=== PATIENT | male | born 1940 | race Caucasian/White ===

== ENCOUNTER 2021-01-28 09:06 | Outpatient (CLI) | payer MEDICARE, OTHER ==
[2021-01-28] MEDS ORDERED: SAW1CAPS6 PO (10:11)
[2021-01-28] MEDS ORDERED: MAGN100T PO (10:11)
[2021-01-28] MEDS ORDERED: VALS320T2 PO (10:11)
[2021-01-28] MEDS ORDERED: UBID100C24 PO (10:11)
[2021-01-28] MEDS ORDERED: OMEG1CAP34 PO (10:11)
[2021-01-28] MEDS ORDERED: BENZ-17 PO (10:11)
[2021-01-28] MEDS ORDERED: ATOR40TA78 PO (10:11)
[2021-01-28] MEDS ORDERED: FINA5TAB4 PO (10:11)
[2021-01-28] MEDS ORDERED: CHOL10003 PO (10:11)
[2021-01-28] MEDS ORDERED: ALFU10TA PO (10:11)
[2021-01-28 10:21] LABS: CHLORIDE 103 mmol/L (98-107)
[2021-01-28 10:28] LABS: ALANINE AMINOTRANSFERASE 29 U/L (12-78); ALBUMIN 3.7 g/dL (3.4-5.0); ALKALINE PHOSPHATASE 71 U/L (45-117); ANION GAP 6 mmol/L (5-15); BILIRUBIN,TOTAL 0.6 mg/dL (0.2-1.0); CALCIUM 9.4 mg/dL (8.5-10.1); CREATININE 0.77 mg/dL (0.7-1.3); TOTAL PROTEIN 6.6 g/dL (6.4-8.2)
== END 2021-01-28 23:59 | disposition home or self-care (01) ==
LOC: STAR 09:06 → EDBD 09:30 → STAR 23:59
PROVIDERS: ATTEND Orthopaedic Surgery
DX: Z01.818 Encounter for other preprocedural examination (principal); M25.511 Pain in right shoulder
CPT/HCPCS: 36415; 80053; 87081; 93005

== ENCOUNTER 2021-02-03 10:17 | Day surgery (SDC) | payer MEDICARE, OTHER ==
[~2021-02-03] VITALS: Ht 165.1 cm; Wt 97.7 kg
[~2021-02-03 10:17] MED LIST: ALFU10TA PO; ATOR40TA78 PO; BENZ-17 PO; CHOL10003 PO; FINA5TAB4 PO; MAGN100T PO; OMEG1CAP34 PO; SAW1CAPS6 PO; UBID100C24 PO; VALS320T2 PO
[2021-02-03 11:24] VITALS: BP 136/85
[2021-02-03] MEDS ORDERED: LACTATED RINGERS 1,000 ML IV SCH (11:30)
[2021-02-03] MEDS ORDERED: CHLORHEXIDINE 15 ML UDC PO ONE (11:30)
[2021-02-03] MEDS ORDERED: BUPIVACAINE LIPOSOME/PF 10ML INFIL ONE (11:55)
[2021-02-03] MEDS ORDERED: OXYcodone 5 MG/5 ML ORAL.SOL UDC PO PRN (12:00)
[2021-02-03] MEDS ORDERED: HYDROcodone/APAP 7.5-325MG/15ML UDC PO PRN (12:00)
[2021-02-03] MEDS ORDERED: FENTANYL PF 100 MCG/2ML IV PRN (12:00)
[2021-02-03] MEDS ORDERED: KETOROLAC 30 MG/1 ML IV PRN (12:00)
[2021-02-03] MEDS ORDERED: ONDANSETRON 2MG/ML, 2ML IVPush PRN (12:00)
[2021-02-03] MEDS ORDERED: PROMETHAZINE 25 MG/ML, 1ML IVPush PRN (12:00)
[2021-02-03] MEDS ORDERED: HYDROmorphone 1 MG/ML, 1ML INJ IVPush PRN (12:00)
[2021-02-03] MEDS ORDERED: ACETAMINOPHEN 325 MG TABLET PO PRN (12:00)
[2021-02-03] MEDS ORDERED: MEPERIDINE/PF 25MG/0.5ML IVPush PRN (12:00)
[2021-02-03] MEDS ORDERED: MIDAZOLAM 1 MG/ML, 2ML ONE (13:39)
[2021-02-03] MEDS ORDERED: FENTANYL PF 100 MCG/2ML ONE (13:39)
[2021-02-03] MEDS ORDERED: CLINDAMYCIN 150 MG/ML, 6ML ONE (13:48)
[2021-02-03] MEDS ORDERED: VANCOMYCIN 1,000 MG ONE (13:48)
[2021-02-03] MEDS ORDERED: TRANEXAMIC ACID 100 MG/ML, 10ML ONE ×2 (13:48→14:29)
[2021-02-03] MEDS ORDERED: ONDANSETRON 2MG/ML, 2ML ONE (14:54)
[2021-02-03] MEDS ORDERED: PROPOFOL 10 MG/ML, 20ML ONE (14:54)
[2021-02-03] MEDS ORDERED: CEFAZOLIN 1,000 MG ONE (14:54)
[2021-02-03] MEDS ORDERED: NEOSTIGMINE 1 MG/ML, 10ML ONE (14:54)
[2021-02-03] MEDS ORDERED: ROCURONIUM 10MG/ML,5ML ONE (14:54)
[2021-02-03] MEDS ORDERED: GLYCOPYRROLATE 0.2MG/1ML, 5ML ONE (14:54)
[2021-02-03] MEDS ORDERED: DEXAMETHASONE 4 MG/ML, 1ML ONE (14:54)
[2021-02-03] MEDS ORDERED: SUCCINYLCHOLINE 20 MG/ML, 10ML ONE (14:54)
[2021-02-03] MEDS ORDERED: OXYC5TAB98 PO (17:24)
== END 2021-02-03 18:00 | disposition home or self-care (01) ==
LOC: OR 10:17
PROVIDERS: ATTEND Orthopaedic Surgery
DX: S46.111A Strain of muscle, fascia and tendon of long head of biceps, right arm, initial encounter (principal); I10 Essential (primary) hypertension; G47.33 Obstructive sleep apnea (adult) (pediatric); N40.0 Benign prostatic hyperplasia without lower urinary tract symptoms; Z79.899 Other long term (current) drug therapy; X58.XXXA Exposure to other specified factors, initial encounter; Y93.89 Activity, other specified; Y92.89 Other specified places as the place of occurrence of the external cause; Y99.8 Other external cause status
CPT/HCPCS: 23430; 23472; 64415; 73020; C1713; C1776; J0330; J0690; J1100; J2250; J2405; J2704; J2710; J3010; J3370; J7120